=== PATIENT | female | born 1940 | race Caucasian/White ===

== ENCOUNTER 2020-05-28 06:40 | Outpatient (RCR) | payer MEDICARE, SELFPAY ==
[2016-07-09 16:50] VITALS: BMI 20.5
[2020-05-28] MEDS: COVID-19 VACC, MRNA(PFIZER)/PF 30 MCG/0.3 ML SYRINGE IM (14:55)
[2020-06-18] MEDS: COVID-19 VACC, MRNA(PFIZER)/PF 30 MCG/0.3 ML SYRINGE IM (14:54)
== END 2020-08-27 23:59 ==
LOC: IMMUN 06:40
PROVIDERS: PCP Internal Medicine; Referring Provider Family Medicine; Visit Provider Family Medicine
DX: Z23 Encounter for immunization (principal)
CPT/HCPCS: 0001A; 0002A; 91300

== ENCOUNTER 2022-06-14 12:34 | Emergency (ER) | payer MEDICARE, SELFPAY ==
[2022-06-14 12:35] VITALS: BP 163/109; PULSE 74; RESP 16; TEMP 36.2; O2SAT 99; BMI 21.6
--- NOTE | 2022-06-14 12:48 | RAD_ITS ---
INDICATION: sob EXAMINATION/TECHNIQUE: X-RAY - XR Chest 2 Views COMPARISON: 07/09/2016. FINDINGS: LINES/DEVICES: None. LUNGS: A vertically oriented fibrosis in the left retrocardiac region stable. Mild biapical pleural thickening stable. MEDIASTINUM AND CARDIOVASCULAR STRUCTURES: Cardiac silhouette not enlarged. Central airways and mediastinal contour are unremarkable. Cardiomegaly resolved. BONES AND SOFT TISSUES: Unremarkable. RAD/Chest PA and Lateral IMPRESSION: Mild left lower lobe fibrosis. Mild biapical pleural thickening. Electronically Signed: Deon Mark MD, LILY at 13:46 EDT ,
--- NOTE | 2022-06-14 12:48 | EKG12_ITS ---
Test Reason : SOB Blood Pressure : / mmHG Vent. Rate : 065 BPM Atrial Rate : 065 BPM P-R Int : 190 ms QRS Dur : 090 ms QT Int : 402 ms P-R-T Axes : 066 030 066 degrees QTc Int : 418 ms Normal sinus rhythm Normal ECG Confirmed by ELENI KILPATRICK, KYA ([id number]), photograph editor ANI CONRAD ([id number]) on 06/16/2022 8:18:21 AM Referred By: TONI Confirmed By:KYA KNOWLES MD
--- NOTE | 2022-06-14 12:50 | EDS_ITS ---
HPI History of Present Illness Chief Complaint: Cough Informant: patient and family Onset/Context/Timing Onset: Weeks Context: gradual Timing: Waxes and wanes Current Severity: Mild Maximum Severity: Moderate Narrative Narrative: Patient presents for evaluation of continued cough and shortness of breath. 2 weeks ago yesterday patient became ill with cough and congestion. She was seen at urgent care and placed on Zithromax. She went back to urgent care this past because she had not improved and had been off antibiotics for 2 days. Reportedly a chest x-ray was done that revealed pneumonia. She was placed on cefuroxime and Zithromax. Family brings her in today for evaluation because of continued shortness of breath and cough. Patient does feel that she has had some intermittent fever. She denies chest pain. She has occasional mucus production with her cough that is clear. PFSH [facility] Medical History Dementia Home Medications aspirin 81 mg chewable tablet 81 mg PO DAILY@0800 07/09/16 [History Last Taken Unknown] calcium carbonate 500 mg-vitamin D3 10 mcg (400 unit) chewable tablet (Calcium 500 + D) 1 tab PO DAILY 07/09/16 [History Last Taken Unknown] hydrocodone-acetaminophen 5-325mg 5mg-325mg 1 tab PO Q6H PRN PRN Pain ##20 07/09/16 [Rx Last Taken Unknown] ibandronate 150 mg tablet 150 mg PO QMONTH 07/09/16 [History Last Taken Unknown] raloxifene 60 mg tablet (Evista) 60 mg PO DAILY 07/09/16 [History Last Taken Unknown] Allergy/AdvReac Type Severity Reaction Status Date / Time Penicillins AdvReac Itching Verified 06/14/22 12:37 Social History Smoking Status: Never smoker ROS ROS ED Constitutional Constitutional ED: Reports fever(s); Denies chills Eyes Eyes: Denies change in vision or discharge from eye(s) ENT ENT ED: Denies discharge from eye(s), rhinorrhea or sore throat Cardiovascular Cardiovascular: Denies chest pain or palpitations Respiratory/Chest Respiratory/Chest: Reports cough and dyspnea Gastrointestinal Gastrointestinal: Denies abdominal pain, diarrhea, nausea or vomiting Genitourinary Genitourinary ED: Denies dysuria Musculoskeletal Musculoskeletal: Denies back pain or extremity pain Integumentary Denies Abrasions or rash Neurologic Neurologic: Denies headache(s) or weakness Allergic/Immunologic Allergic/Immunologic ED: Denies lip swelling or urticaria EXAM Physical Exam Const Vital Signs: 06/14/22 12:35 06/14/22 12:48 Temperature 97.2 F L Temperature Source Temporal Pulse Rate 74 Respiratory Rate 16 Respiratory Effort Normal Respiratory Depth Normal Respiratory Pattern Normal Blood Pressure 163/109 H Blood Pressure Mean 127 Pulse Ox 99 Oxygen Delivery Method Room Air Room Air Positive well nourished and well developed General Appearance ED: well developed HEENT Reports normocephalic and head/scalp atraumatic Eyes PERRL and EOMs intact bilaterally Neck supple Chest Wall inspection of chest normal and palpation of chest normal Resp normal respiratory effort and clear to auscultation bilaterally Cardio regular rate and regular rhythm GI normal to inspection, nondistended, normoactive bowel sounds Palpation: soft Extremity normal to inspection Neuro no sensory deficits noted Sensorium / Orientation: alert Motor Exam: strength 5/5 throughout Psych mental status grossly normal Skin no rashes or lesions noted MDM MDM MDM Narrative Medical decision making narrative: Patient placed on satellite technician. EKG obtained to evaluate for cardiac arrhythmia/ischemia. Labwork obtained to evaluate for leukocytosis, anemia, and electrolyte derangement. Chest x-ray obtained to evaluate for acute lung pathology, cardiac size, or mediastinal abnormality. History & Record Review Discussion w/independent historian: Patient and Family Lab Data Attestation: I reviewed the patient's lab results. Labs: Laboratory Results - last 24 hr 06/14/22 06/14/22 06/14/22 13:21 13:21 13:21 WBC 10.4 RBC 4.66 Hgb 14.1 Hct 43.0 MCV 92.3 MCH 30.3 MCHC 32.8 RDW Std Deviation 45.1 H RDW Coeff of Sg 13.2 Plt Count 226 MPV 10.0 Immature Gran % (Auto) 0.800 Neut % (Auto) 68.3 Lymph % (Auto) 24.1 [place] % (Auto) 5.7 Eos % (Auto) 0.7 Baso % (Auto) 0.4 Absolute Neuts (auto) 7.1 Absolute Lymphs (auto) 2.52 Nucleated RBC % 0 D-Dimer Quant (PE/DVT) 0.34 Sodium 143 Potassium 4.3 Chloride 108 H Carbon Dioxide 31.0 Anion Gap 4 L BUN 20 H Creatinine 0.91 Estim Creat Clear Calc 37.78 Est GFR (MDRD) Af Amer 77 Est GFR (MDRD) Non-Af 63 BUN/Creatinine Ratio 22.1 H Glucose 107 H Lactic Acid Calcium 9.2 Troponin I High Sens 5 B-Natriuretic Peptide 06/14/22 06/14/22 13:21 13:21 WBC RBC Hgb Hct MCV MCH MCHC RDW Std Deviation RDW Coeff of Sg Plt Count MPV Immature Gran % (Auto) Neut % (Auto) Lymph % (Auto) [place] % (Auto) Eos % (Auto) Baso % (Auto) Absolute Neuts (auto) Absolute Lymphs (auto) Nucleated RBC % D-Dimer Quant (PE/DVT) Sodium Potassium Chloride Carbon Dioxide Anion Gap BUN Creatinine Estim Creat Clear Calc Est GFR (MDRD) Af Amer Est GFR (MDRD) Non-Af BUN/Creatinine Ratio Glucose Lactic Acid 1.3 Calcium Troponin I High Sens B-Natriuretic Peptide 73.7 Radiography Chest X-Ray - ED: 2 View, Read by ED Physician, Normal, Heart, Lungs, Mediastinum and No Infiltrates Diagnostic Testing: Clinical Impression(s) from Imaging Studies Chest X-Ray 06/14/22 12:48 IMPRESSION: Mild left lower lobe fibrosis. Mild biapical pleural thickening. Electronically Signed: Deon Mark MD, LILY at 13:46 EDT Reading Location ID and State: [facility] / [place] Tel , Service support , EKG Initial EKG: Attestation: I personally reviewed and interpreted this EKG as follows: Interpretation: Sinus Rhythm (Sinus at 65 with no acute ischemia.) Differential Diagnosis Chest pain/SOB: pulmonary embolism Reason(s) PE less likely: Positive for D- Dimer negative, not tachycardic and not hypoxic, ACS ACS: Positive for no evidence of ACS based on cardiac biomarkers and EKG without ischemia and pneumonia Reason(s) pneumonia less likely: Positive for no infiltrate on CXR and no elevation in WBC count Treatment and Re-Evaluation :: CBC reveals normal white count at 10.4. Normal differential is noted. Chemistry studies are unremarkable. Troponin is normal at 5 and D-dimer is normal at 0.34. Lactic acid is 1.3. BNP is 73. Two-view chest x-ray per my interpretation reveals no evidence of infiltrate. Radiology interpretation is reviewed. She has some mild fibrosis noted but no infiltrate. EKG reveals no ischemia. I was able to review the report from the chest x-ray she had performed at [facility] urgent care. The report stated that there was a mild hazy opacity in the right midlung which may represent early pneumonia or atelectasis. Test results are discussed with patient and family at bedside. At this time I see no evidence of pneumonia. My suspicion is that she is a viral illness that will take at least 3 weeks to fully run its course. Given that she has already started the antibiotic course I did recommend she finish this. Patient is at least reassured that her work-up was unremarkable and no evidence of a pneumonia at this time. Discharge Plan Triage Chief Complaint: Cough ED Provider: Lynda Cuadra Dx/Rx/DC Orders Clinical Impression: Bronchitis Instructions: Acute Bronchitis Prescriptions: No Action aspirin 81 MG Tab.Chew 81 mg PO DAILY@0800 raloxifene [Evista] 60 MG tablet 60 mg PO DAILY ibandronate 150 MG tablet 150 mg PO QMONTH Label Comments: Take 1 tablet by mouth once every month. calcium carbonate-vitamin D3 [Calcium 500 + D] 1 EACH Tab.Chew 1 tab PO DAILY hydrocodone-acetaminophen 1 TABLET tablet 1 tab PO Q6H PRN PRN (Reason: Pain) Qty: 20 0RF Primary Care Provider: Madonna Paulino Referrals: Madonna Paulino MD [Primary Care Provider] - 1 Week Disposition Disposition: Home, Self Care
[2022-06-14 13:31] LABS: Absolute Lymphocyte Count 2.52 X10^3/uL (0.83-4.51); Absolute Neutrophil Count 7.1 X10^3/uL (2.0-7.7); Basophil# 0.04 X10^3/uL; Basophil% 0.4 % (0-1); Eosinophil# 0.07 X10^3/uL; Eosinophils% 0.7 % (0-5); Hemoglobin 14.1 g/dL (12.0-15.0); Lymphocyte # 2.52 X10^3/ul (0.83-4.51); Lymphocyte % 24.1 % (19-41); Mean Corp Hgb Conc 32.8 g/dL (32-36); Mean Corpuscular Hgb 30.3 pg (27.0-32.0); Mean Corpuscular Volume 92.3 fL (81-99); Monocyte% 5.7 % (0-10); NRBC Flagged by Analyzer 0 % (0-5); Neutrophil # 7.13 X10^3/uL (2.7-7.7); Neutrophil % 68.3 % (47-70); Platelet Count 226 K/mm3 (150-450); RBC Distribution Width CV 13.2 % (11.6-14.6); RBC Distribution Width SD 45.1 fl (35.1-43.9); Red Blood Count 4.66 M/mm3 (4.2-5.4); White Blood Count 10.4 K/mm3 (4.4-11.0)
[2022-06-14 13:48] LABS: D-Dimer Quantitative (DVT/PE) 0.34 FEU/ug/m (0.27-0.49)
[2022-06-14 13:49] LABS: Anion Gap 4 (5-15); BNP,B-Type NATRIURETIC PEPTIDE 73.7 pg/mL (0-100); BUN 20 mg/dL (7-18); BUN/Creat Ratio 22.1 RATIO (10-20); Calcium,Total 9.2 mg/dL (8.5-10.1); Chloride 108 mmol/L (98-107); Creatinine, Serum 0.91 mg/dL (0.55-1.02); EST Glomerular Filtration Rate 63 mL/min (>60); Est Glom Filt Rate - Afr Amer 77 mL/min (>60); Estimated Creatinine Clearance 37.78 ml/min; Glucose 107 mg/dL (74-106); Potassium 4.3 mmol/L (3.5-5.1); Sodium Level 143 mmol/L (136-145); Troponin-I HS 5 pg/mL (3.0-54.0)
[2022-06-14 13:53] LABS: Lactic Acid 1.3 mmol/L (0.4-1.9)
[2022-06-14 14:34] VITALS: BP 134/78; PULSE 78; RESP 16; O2SAT 98
[2022-06-14 15:00] VITALS: BP 134/78; PULSE 64; RESP 18; TEMP 36.6; O2SAT 100
== END 2022-06-14 15:03 | disposition home or self-care (01) ==
LOC: ED 14:44
PROVIDERS: Emergency Provider Emergency Medicine; PCP Internal Medicine; Visit Provider Emergency Medicine
DX: J40 Bronchitis, not specified as acute or chronic (principal)
CPT/HCPCS: 71046; 80048; 83605; 83880; 84484; 85025; 85379; 93005; 99285; A4216

== ENCOUNTER → 2024-08-28 | Outpatient (CLI) | payer MEDICARE, SELFPAY | END | disposition home or self-care (01) | LOC: LABSPEC 11:07 | PROVIDERS: PCP Internal Medicine; Referring Provider Nurse Practitioner Family; Visit Provider Nurse Practitioner Family | DX: R41.0 Disorientation, unspecified (principal) | CPT/HCPCS: 87086; 87088 ==